=== PATIENT | male | born 1955 | race Caucasian/White ===

== ENCOUNTER 2017-03-11 11:28 | Observation (INO) | payer OTHER ==
[~2017-03-11] VITALS: Ht 167.6 cm; Wt 77.5 kg
[2017-03-11] MEDS ORDERED: FENO1TAB76 PO (12:00)
[2017-03-11] MEDS ORDERED: PRAV40TA2 PO (12:00)
[2017-03-11] MEDS ORDERED: NS 1000P @30 MLS/HR (KVO) IV SCH (12:00)
[2017-03-11] MEDS ORDERED: TAMS0.4C4 PO (12:00)
[2017-03-11] MEDS ORDERED: BUSP5TAB PO (12:00)
[2017-03-11 12:02] VITALS: BP 110/66; PULSE 50; RESP 16; TEMP 98; O2SAT 99
[2017-03-11 12:23] LABS: AUTOMATED NEUTROPHIL # 5.5 TH/MM3 (1.8-7.7); BASOPHIL # 0.1 TH/MM3 (0-0.2); BASOPHIL % 0.8 % (0.0-2.0); EOSINOPHIL # 0.1 TH/MM3 (0-0.4); EOSINOPHIL % 0.9 % (0.0-4.0); HEMATOCRIT 38.5 % (39.0-51.0); HEMO FLAGS DIFF FINAL; LYMPH % 22.9 % (9.0-44.0); LYMPHOCYTE # 1.9 TH/MM3 (1.0-4.8); MEAN CELL VOLUME 88.2 FL (80.0-100.0); MEAN CORPUSCULAR HGB CONC 34.1 % (32.0-36.0); MONO % 9.9 % (0.0-8.0); NEUT % 65.5 % (16.0-70.0); PLATELET COUNT 256 TH/MM3 (150-450); RED BLOOD COUNT 4.37 MIL/MM3 (4.50-5.90); RED CELL DISTRIBUTION WIDTH 13.5 % (11.6-17.2); WHITE BLOOD COUNT 8.4 TH/MM3 (4.0-11.0)
[2017-03-11 12:30] LABS: APTT (PATIENT) 24.5 SEC (24.3-30.1); PROTHROMBIN TIME - PATIENT 11.1 SEC (9.8-11.6)
[2017-03-11 12:53] LABS: BICARBONATE 29.4 MEQ/L (21.0-32.0)
[2017-03-11] MEDS ORDERED: IOHEXOL 350 MG/ML 100 ML BTL (for Cath Lab) OTHER ONE (15:20)
[2017-03-11] MEDS ORDERED: SODIUM CHLOR 0.9% 1000 ML INJ 500 ML IV SCH (16:06)
[2017-03-11] MEDS ORDERED: MIDAZOLAM HCL 5 MG/5 ML VIAL ONE (16:17)
--- NOTE | 2017-03-11 16:33 | CATHPROC ---
Patient Name: HERRERA PRUETT Study #: [id number] Initial MD: Drew Warren Date of : 1955 Study Date: 03/11/2017 Cardiac Catheterization Report 03/11/2017 4:33:26 PM Financial #: [id number] 1 of 11 Patient Name: HERRERA PRUETT Study #: [id number] Initial MD: Drew Warren Date of : 1955 Study Date: 03/11/2017 Entire Case Report Patient Information Patient Name HERRERA PRUETT Date of 1955 Age 61 years Financial # [id number] Gender M AlternateID Lab Number 4 Accession # Room Number Height (in) 66.0 Height (cm) 167.6 BSA 1.87 Weight (lbs) 170.1 Weight (kg) 77.3 Patient Address/Phone Number Home Address [facility] Home Phone Number [phone] [place] [address] Study Information Study Number Scheduled Start Study Start [id number] 03/11/2017 Mar 11 2017 3:21PM Referring Institution Admit Source Facility Department 1 [facility] Physician and Clinical Staff Initial Drew Elena Mortuary Operations Managercharles Fisher RN, Fareed Mortuary Operations ManagerDheeraj Anne,SCOT Recorder Anival Muhammad,(R) Kailey Concepcion RCIS TECH2 Procedures Performed Procedure Location (Site) Vessel Name Angiogram LV LV Ventricle Coronary Angiograms LCA Left Coronary Coronary Angiograms RCA Right Coronary L Heart Cath 03/11/2017 4:33:26 PM Financial #: [id number] 2 of 11 Patient Name: HERRERA PRUETT Study #: [id number] Initial MD: Drew Warren Date of : 1955 Study Date: 03/11/2017 Equipment Time Monomer Purification Operator Description Size Mfg Part Number Used/Scraped TRANSDUCER, TRUWAVE 15:26 BYERS MONTANEZ * [id number] Used W/Online PrasadCOCK [id number] *[id number] [id number] *[id number] [id number] *[id number] 15:26 MEDLINE INDUSTRIES PACK, CCL CUSTOM * Used *[id number] 15:26 MEDLINE PACER PEN, SKIN DUAL W/ RULER * [id number] Used [id number] 15:26 ERPLY MEDICAL WIRE, 3MMJ .035 180CM 180CM Used *[id number] PROBE COVER, STERILE 15:26 [place] [employer] MEDICAL * [id number] Used ULTRASOUND W/ GEL [id number] 15:26 NAMIC MANIFOLD, 4 PORT * Used *[id number] 15:26 NAMIC TUBING, HIGH PRESSURE 48" 48" Used *[id number] 15:26 NYCOMED OMNIPAQUE, 350 MG, 150ML 150ML [id number] Used [id number] 15:26 [employer] MEDICAL BLANKET,WARM AIR CCL * Used *[id number] 15:26 TERUMO MEDICAL SHEATH, FR5 TERUMO (10CM) FR 5 [id number] Used Insurance Information Insurance Payor Private Health Insurance Third Constitution Party Third Constitution Party Number CIGNA POS CIGPOS History: Current Medications Medication Dosage/Unit Route Frequency Last Date/Time Taken Statins (any) History: Allergies Allergy Reaction No Known Allergies 03/11/2017 4:33:26 PM Financial #: [id number] Patient Name: HERRERA PRUETT Study #: [id number] Initial MD: Drew Warren Date of : 1955 Study Date: 7 History: Risk Factors Family History of Hypertension Dyslipidemia Previous [place] Previous Heart Failure Premature CAD No Yes No No No Prior Valve Prior PCI Prior CABG Surgery No No No Cerebrovascular Peripheral Artery Chronic Lung On Dialysis Diabetes Disease Disease Disease No No No No No History: Stress Tests Stress or Imaging Studies Performed Yes Standard Exercise Stress Test No Stress Echo No Stress Test SPECT Stress Test SPECT Result Stress Test SPECT Ischemia Risk/Extent Yes Positive Low Stress Test CMR No Cardiac CTA Coronary Calcium Score No No History: Other Current Smoker No Labs Hgb (g/dl) Hct (%) RBC (MIL/MM3) WBC (l/cumm) Platelets (thousands) 12.00-18.00 37.00-55.00 4.80-6.20 4.80-10.80 140.00-450.00 13.1 38.5 4.3 8.4 256 Glucose (mg/dl) BUN (mg/dl) Creatinine (mg/dl) BUN:Creatinine (1:x) 60.00-110.00 8.00-20.00 0.10-9.00 10.00-20.00 87 19 1.1 17.3 Na (meq/l) K (meq/l) Cl (meq/l) Ca (mg/dl) 138.00-146.00 3.80-5.10 101.00-111.00 9.00-10.50 140 4 105 9.1 PT (sec) PTT (sec) INR (PTT:PT) 9.40-11.40 25.10-32.70 0.50-2.00 11.1 24.5 1 03/11/2017 4:33:26 PM Financial #: [id number] Patient Name: HERRERA PRUETT Study #: [id number] Initial MD: Drew Warren Date of : 1955 Study Date: 2016 CPK-MB (ng/ML) 0.00-7.00 Not Drawn Medication Medication Total Dose (Bolus/Oral) Medication Total Dosage/Unit 1% XYLOCAINE 20 mL FENTANYL 75 mcg VERSED 3 mg Medications (Bolus/Oral) Medication Time Given Dosage/Unit Administered By Reason FENTANYL 03/11/2017 3:46:29 PM 50 mcg Fareed Fisher RN 50 mcg FENTANYL given in lab by Fareed Fisher RN in Left Antecubital via Peripheral IV. VERSED 03/11/2017 3:46:30 PM 2 mg Fareed Fisher RN 2 mg VERSED given in lab by Fareed Fisher RN in Left Antecubital via Peripheral IV. 1% XYLOCAINE 03/11/2017 3:46:48 PM 20 mL Drew Warren 20 mL 1% XYLOCAINE given in lab by Drew Warren in Right Groin via Subcutaneous. FENTANYL 03/11/2017 3:50:13 PM 25 mcg Fareed Fisher RN 25 mcg FENTANYL given in lab by Fareed Fisher RN in Left Antecubital via Peripheral IV. VERSED 03/11/2017 3:50:51 PM 1 mg Fareed Fisher RN 1 mg VERSED given in lab by Fareed Fisher RN in Left Antecubital via Peripheral IV. Medication (Drip) Medication Time Given Dosage/Unit Concentration/Unit Diluent (ml) Soluti on IV Solutions 03/11/2017 3:23:50 PM 0 mL (IV) 500 NaCl .9 IV Solutions given in lab by Dheeraj Cruz, SCOT in Left Antecubital via Peripheral IV. Pump/Drip Flow = 20 ml/hr using NaCl .9. 03/11/2017 4:33:26 PM Financial #: [id number] 5 of 11 Patient Name: HERRERA PRUETT Study #: [id number] Initial MD: Drew Warren Date of : 1955 Study Date: 03/11/2017 Initial Case Assessment Cardiovascular HR Rhythm NIBP Chest Pain 56 Sinus/Van 110/63 0 Edema Present Skin color Skin None Normal Warm Dry Circulatory - Right Pulses Dorsalis Pedis Femoral 1 2 Scale (0,1,2,3,4,d) Circulatory - Left Pulses Dorsalis Pedis Femoral 1 2 Scale (0,1,2,3,4,d) Neurological State Oriented to time-place- Alert Moves all extremities person Respiration - General Respiration Rate SpO2 (%) O2 (lpm) (B/min) 15 98 0 03/11/2017 4:33:26 PM Financial #: [id number] 6 of 11 Patient Name: HERRERA PRUETT Study #: [id number] Initial MD: Drew Warren Date of : 1955 Study Date: 03/11/2017 Final Case Assessment Cardiovascular HR Rhythm NIBP Chest Pain 76 Sinus 95/49 0 Edema Present Skin color Skin None Normal Warm Dry Circulatory - Right Pulses Dorsalis Pedis Femoral 1 2 Scale (0,1,2,3,4,d) Circulatory - Left Pulses Dorsalis Pedis Femoral 1 2 Scale (0,1,2,3,4,d) Neurological State Oriented to time-place- Alert Moves all extremities person Respiration - General Respiration Rate SpO2 (%) O2 (lpm) (B/min) 14 98 2 Vitals Summary Pain Time HR NIBP SpO2 Resp Temp EtCO2 Apnea Daysi Dickson Comment Level 15:25:12 110/63 98.0 10 0 2 15:30:03 57 109/66 99.0 13 10 0 2 15:35:06 59 97/54 100.0 14 10 0 2 15:40:03 60 101/63 100.0 16 10 0 2 15:45:04 52 97/60 99.0 15 10 0 2 15:50:05 64 92/55 95.0 12 10 0 2 15:55:04 79 95/49 98.0 15 10 0 2 16:00:05 74 85/51 98.0 13 10 0 2 16:05:02 72 93/56 98.0 12 10 0 2 16:10:05 74 98/64 99.0 15 10 0 2 16:15:04 70 108/65 98.0 11 10 0 2 16:20:09 70 104/63 97.0 11 10 0 2 16:25:08 71 100/65 97.0 9 10 0 2 16:30:05 103/72 10 0 2 03/11/2017 4:33:26 PM Financial #: [id number] Patient Name: HERRERA PRUETT Study #: [id number] Initial MD: Drew Warren Date of : 1955 Study Date: 03/11/2017 Daysi Score Summary Time Activity Resp Circ LOC Color Total Score 15:25:12 2 2 2 2 2 10 15:30:03 2 2 2 2 2 10 15:35:06 2 2 2 2 2 10 15:40:03 2 2 2 2 2 10 15:45:04 2 2 2 2 2 10 15:50:05 2 2 2 2 2 10 15:55:04 2 2 2 2 2 10 16:00:05 2 2 2 2 2 10 16:05:02 2 2 2 2 2 10 16:10:05 2 2 2 2 2 10 16:15:04 2 2 2 2 2 10 16:20:09 2 2 2 2 2 10 16:25:08 2 2 2 2 2 10 16:30:05 2 2 2 2 2 10 Daysi Score Definition Table Activity - 0 Activity - 1 Activity - 2 No Movement to Command Weak Hand Grasp Lift Head, Good Hand Grasp Respiration - 0 Respiration - 1 Respiration - 2 Apneic or Obstructed Shallow Breath, Airway Adjunct Deep Breath, Cough Freely Circulation - 0 Circulation - 1 Circulation - 2 B/P > 50% Admission B/P B/P > 20-50% Admission B/P B/P Stable X3 Level of Consciousness - 0 Level of Consciousness - 1 Level of Consciousness - 2 Not Responding Arousable On Calling Awake and Aware Color - 0 Color- 1 Color - 2 Cyanotic Lips, Nailbed, Skin Pale, Dusky [place] Or Normal Chronological Log Time Study Chronological Log 15:20:35 Patient arrived via Bed. 15:22:43 Patient Name, D.O.B, / Armband Verified By R.N. 15:22:44 Consent signed by the physician and the patient and verified by the [facility] staff. 15:22:45 Pre-op and post- op instructions given; patient acknowledges understanding of instruction s. 15::46 Verbal Stimulation=2 Physical Stimulation=2 Airway=2 Respiration=2 TOTAL=8. (0=absent, 1= limited, 2=present) 15:22:58 Presedation assessment performed by [facility] RN. 15:23:00 Patient has been NPO for More than 6Hrs. 03/11/2017 4:33:26 PM Financial #: [id number] Patient Name: HERRERA PRUETT Study #: [id number] Initial MD: Drew Warren Date of : 1955 Study Date: 03/11/2017 15:23:01 Skin Breakdown- none per patient. 15:23:11 Patient Warmer Placed on the Table. 15:23:12 Twan Prominences Protected 15:23:14 A # 20 IV was noted in the Antecubital (left). Grade = 0 IV Solutions given in lab by Dheeraj Cruz, RN in Left Antecubital via Peripheral IV. Pump/Dri p Flow = 20 ml/hr using 15:23:50 NaCl .9. 15:24:14 History and physical on the chart or being dictated. Assessment: Initial Case, HR=56 BPM, Rhythm=Sinus/Van, MMTG=461/63 mmhg, Chest Pain=0, Edema= None, Color=Normal, Skin = Warm, Dry Right Pulses: Jamar Ped=1, Femoral=2 15:24:17 Left Pulses: Jamar Ped=1, Femoral=2 Neurological: State=Alert, Ox3, HASKINS Respiration: Resp=15 B/min, SpO2=98 %, O2=0 lpm Vitals capture started with the following parameters, Patient=Adult, Interval=15 min, Initial P dkoppjp=473 mmHg, 15:24:32 Deflation Rate=5 mmHg 15:25:12 MHUM=350/63 mmhg, SpO2=98.0 %, Pain=0, Daysi=10, Dickson=2 15:30:00 MD arrived. 15:30:03 HR=57 bpm, YPNT=348/66 mmhg, SpO2=99.0 %, Resp=13 B/min, Pain=0, Daysi=10, Dickson=2 15:35:06 HR=59 bpm, NIBP=97/54 mmhg, EuU6=090.0 %, Resp=14 B/min, Pain=0, Daysi=10, Dickson=2 15:35:49 Reference ECG taken 15:35:52 Bilateral groins prepped with 2% chlorhexidine, and with a 3 min. waiting time. 15:40:03 HR=60 bpm, XIVI=734/63 mmhg, IlZ3=162.0 %, Resp=16 B/min, Pain=0, Daysi=10, Dickson=2 15:40:22 Pressure channel 1 zeroed. 15:45:04 HR=52 bpm, NIBP=97/60 mmhg, SpO2=99.0 %, Resp=15 B/min, Pain=0, Daysi=10, Dickson=2 Time Out. Correct patient, correct procedure,correct physician, power injector loaded with cont rast with surgical team 15:45:38 present. Time Out Concurred by MD, individual staff in procedure 15:46:17 Case Start 15:46:29 50 mcg FENTANYL given in lab by Fareed Fisher RN in Left Antecubital via Peripheral IV. 15:46:30 2 mg VERSED given in lab by Fareed Fisher RN in Left Antecubital via Peripheral IV. 15:46:48 20 mL 1% XYLOCAINE given in lab by Drew Warren in Right Groin via Subcutaneous. 15:48:04 Access site was Right Femoral Artery. 15:48:11 A SHEATH, FR5 TERUMO (10CM) FR 5 was advanced into the Fem Art (right) using the Percutaneo us technique. A PIGTAIL ANG. INFINITI CATHETER FR 5 was advanced over a wire. OMNIPAQUE, 350 MG, 150ML 150ML was used 15:48:33 for injections. 15:50:05 HR=64 bpm, NIBP=92/55 mmhg, SpO2=95.0 %, Resp=12 B/min, Pain=0, Daysi=10, Dickson=2 15:50:13 25 mcg FENTANYL given in lab by Fareed Fisher RN in Left Antecubital via Peripheral IV. 15:50:34 The LV was injected at 10 cc/sec for a total of 30. OMNIPAQUE, 350 MG, 150ML 150ML used. 15:50:51 1 mg VERSED given in lab by Fareed Fisher RN in Left Antecubital via Peripheral IV. Recorded Pressure: LV, HR=69, Condition=Condition 1 15:51:03 (Left Ventricle) LV 82/4/8 Recorded Pressure: LV, Ao, HR=69, Condition=Condition 1 15:51:07 (Left Ventricle) LV 81/4/8, (Aorta) Ao 15:51:23 Catheter was removed 03/11/2017 4:33:26 PM Financial #: [id number] Patient Name: HERRERA PRUETT Study #: [id number] Initial MD: Drew Warren Date of : 1955 Study Date: 03/11/2017 A JL 4.0 INFINITI CATHETER FR 5 was advanced over a wire. OMNIPAQUE, 350 MG, 150ML 150ML was us ed for 15:51:58 injections. 15:53:08 The LCA was injected and visualized at various angles. OMNIPAQUE, 350 MG, 150ML 150ML used . Recorded Pressure: Ao, HR=68, Condition=Condition 1 15:53:27 (Aorta) Ao 15:54:19 Catheter was removed A AR MOD INFINITI CATHETER FR 5 was advanced over a wire. OMNIPAQUE, 350 MG, 150ML 150ML was us ed for 15:54:49 injections. 15:55:04 HR=79 bpm, NIBP=95/49 mmhg, SpO2=98.0 %, Resp=15 B/min, Pain=0, Daysi=10, Dikcson=2 15:55:43 The RCA was injected and visualized at various angles. OMNIPAQUE, 350 MG, 150ML 150ML used . 15:56:24 Catheter was removed 15:57:42 Case End Assessment: Final Case, HR=76 BPM, Rhythm=Sinus, NIBP=95/49 mmhg, Chest Pain=0, Edema=None, Col or=Normal, Skin = Warm, Dry Right Pulses: Jamar Ped=1, Femoral=2 15:58:32 Left Pulses: Jamar Ped=1, Femoral=2 Neurological: State=Alert, Ox3, HASKINS Respiration: Resp=14 B/min, SpO2=98 %, O2=2 lpm 16:00:05 HR=74 bpm, NIBP=85/51 mmhg, SpO2=98.0 %, Resp=13 B/min, Pain=0, Daysi=10, Dickson=2 16:01:56 No case complications noted. 16:01:57 Cine recording checked. 16:04:42 Bedside Report will be given. 16:04:48 A Left Heart Cath was performed. 16:05:02 HR=72 bpm, NIBP=93/56 mmhg, SpO2=98.0 %, Resp=12 B/min, Pain=0, Daysi=10, Dickson=2 16:10:05 HR=74 bpm, NIBP=98/64 mmhg, SpO2=99.0 %, Resp=15 B/min, Pain=0, Daysi=10, Dickson=2 16:15:04 HR=70 bpm, ZXUH=782/65 mmhg, SpO2=98.0 %, Resp=11 B/min, Pain=0, Daysi=10, Dickson=2 16:20:09 HR=70 bpm, XZZT=222/63 mmhg, SpO2=97.0 %, Resp=11 B/min, Pain=0, Daysi=10, Dickson=2 16:25:08 HR=71 bpm, FRFM=191/65 mmhg, SpO2=97.0 %, Resp=9 B/min, Pain=0, Daysi=10, Dickson=2 16:30:05 ROXJ=995/72 mmhg, Pain=0, Daysi=10, Dickson=2 16:30:24 Vitals capture stopped. 16:30:34 Sterile dressing applied to site 16:32:41 Patient moved to stretcher Recorded Pressures: Condition 1 Time Chamber Pressure Manual Override (*) 15:51:03 LV 82/4/8 s/bd/ed 15:51:07 LV 81/4/8 s/bd/ed 15:51:07 Ao 90/52/69 s/d/m 15:53:27 Ao 90/53/69 s/d/m Gradients/Valve Area(s): Condition 1 03/11/2017 4:33:26 PM Financial #: [id number] Patient Name: HERRERA PRUETT Study #: [id number] Initial MD: Drew Warren Date of : 1955 Study Date: 03/11/2017 Valve calculated Mean Gradient Sq Root Mean Gradient Valve Area Valve Area Index Aortic valve by Radha Aortic valve by Thermo Oxygen Values/Cardiac Output/Resistances: Condition 1 Oxygen Values O2 Consumption O2 Capacity 233.8 + 178.2 * = Manually Altered + = O2 Consumption is calculated using the formula 125 x BSA and should be considered a rough estimat e. End Study - Contrast Media Used In Study Contrast Total Opened (mL) Total Used (mL) Total Wasted (mL) Omnipaque 200 80 120 End Study - Maximum Contrast Load Max Contrast Load (mL) 351.4 End Study - Radiation Exposure Fluoro Time (minutes) 1.5 End Study - Patient Disposition Complications Transferred To Interventional Outcome No Outpatient Bed No attempt made 03/11/2017 4:33:26 PM Financial #: [id number]
[2017-03-11 17:08] LABS: HDL CHOLESTEROL 55.5 MG/DL (40.0-60.0)
[2017-03-11 23:35] VITALS: BP 117/71; PULSE 59; RESP 18; TEMP 98; O2SAT 97
[2017-03-12] VITALS (13 sets, daily range): BP systolic 107–147; BP diastolic 70–83; PULSE 54–80; RESP 16–18; TEMP 97.9–98.9; O2SAT 96–100
--- NOTE | 2017-03-12 09:21 | MA ---
cc: CARITO MONTAÑO DATE: March 11, 2017 INDICATIONS: Unstable angina. Multiple risk factors for coronary artery disease. PROCEDURE PERFORMED: 1. Retrograde left heart catheterization with left ventriculography and selective coronary angiography. 2. Moderate sedation. ACCESS SITE: Right femoral artery. EQUIPMENT USED: A 5-Wolof pigtail catheter, 5-Wolof JL4 and AR modified coronary artery catheters. MEDICATIONS: Versed IV. Fentanyl IV. CONTRAST: Omnipaque 80 cc. COMPLICATIONS: None. ESTIMATED BLOOD LOSS: Less than 10 cc. METHOD OF HEMOSTASIS: Manual compression. RESULTS A. HEMODYNAMICS: Heart rate 72 beats per minute. Left ventricular end-diastolic pressure 5 mmHg. Left ventricle 90/5. Aorta 90/63/69. B. LEFT VENTRICULOGRAPHY: Left ventricular ejection fraction 55%. Wall motion normal. No mitral regurgitation. C. CORONARY ANGIOGRAPHY: The left main coronary artery is patent. The left anterior descending coronary artery is patent. D1 patent. D2 patent. The left circumflex artery is patent. OM-1 patent. OM2 patent. The right coronary artery is a dominant vessel which is patent. PDA patent. PLV patent. DIAGNOSES: 1. Patent coronary arteries. 2. Preserved left ventricular systolic function. DISPOSITION: Mr. Schmid can be reassured about his cardiac status. His study revealed no evidence of significant obstructive coronary disease and preserved left ventricular systolic function. His symptoms are likely of non-cardiac origin. He will be discharged home later today and I will see him back for followup in our office after discharge. MD MIGUEL Nguyễn/SSB /4:07 PM /9:13 AM RADHA
--- NOTE | 2017-03-12 16:53 | PD.CARD.PN ---
Subjective Subjective Remarks No CP or SOB, groin now stable Objective Medications Current Medications Medications (Trade) Dose Ordered Sig/Juan C Route Start Time Stop Time Status Last Admin (NS 1000 ml Inj) 1,000 ml @ 30 mls/hr Q24H IV 03/11/17 12:00 Vital Signs / I&O Vital Signs Date Time Temp Pulse Resp B/P Pulse Ox O2 Delivery O2 Flow Rate FiO2 03/12/17 14:05 61 03/12/17 13:00 64 03/12/17 12:04 63 03/12/17 11:54 98.9 60 18 110/71 99 03/12/17 11:00 66 03/12/17 10:00 80 03/12/17 09:00 58 03/12/17 08:00 56 03/12/17 08:00 98.3 58 16 137/76 100 03/12/17 07:00 66 03/12/17 04:00 97.9 68 18 147/83 97 03/12/17 02:03 60 16 123/76 96 03/12/17 00:40 98.0 54 18 107/70 98 03/12/17 00:00 54 03/11/17 23:35 98.0 59 18 117/71 97 03/11/17 23:35 59 Physical Exam GENERAL: In NAD SKIN: Warm and dry. HEAD: Normocephalic. EYES: No scleral icterus. No injection or drainage. NECK: Supple, trachea midline. No JVD or lymphadenopathy. CARDIOVASCULAR: Regular rate and rhythm without murmurs, gallops, or rubs. RESPIRATORY: Breath sounds equal bilaterally. No accessory muscle use. GASTROINTESTINAL: Abdomen soft, non-tender, nondistended. MUSCULOSKELETAL: No cyanosis, or edema. Groin stable. Laboratory Laboratory Tests Test 03/11/17 12:00 White Blood Count 8.4 TH/MM3 Red Blood Count 4.37 MIL/MM3 Hemoglobin 13.1 GM/DL Hematocrit 38.5 % Mean Corpuscular Volume 88.2 FL Mean Corpuscular Hemoglobin 30.0 PG Mean Corpuscular Hemoglobin 34.1 % Concent Red Cell Distribution Width 13.5 % Platelet Count 256 TH/MM3 Mean Platelet Volume 8.6 FL Neutrophils (%) (Auto) 65.5 % Lymphocytes (%) (Auto) 22.9 % Monocytes (%) (Auto) 9.9 % Eosinophils (%) (Auto) 0.9 % Basophils (%) (Auto) 0.8 % Neutrophils # (Auto) 5.5 TH/MM3 Lymphocytes # (Auto) 1.9 TH/MM3 Monocytes # (Auto) 0.8 TH/MM3 Eosinophils # (Auto) 0.1 TH/MM3 Basophils # (Auto) 0.1 TH/MM3 CBC Comment DIFF FINAL Differential Comment Prothrombin Time 11.1 SEC Prothromb Time International 1.0 RATIO Ratio Activated Partial 24.5 SEC Thromboplast Time Sodium Level 140 MEQ/L Potassium Level 4.0 MEQ/L Chloride Level 105 MEQ/L Carbon Dioxide Level 29.4 MEQ/L Anion Gap 6 MEQ/L Blood Urea Nitrogen 19 MG/DL Creatinine 1.18 MG/DL Estimat Glomerular Filtration 62 ML/MIN Rate Random Glucose 87 MG/DL Calcium Level 9.1 MG/DL Triglycerides Level 116 MG/DL Cholesterol Level 147 MG/DL LDL Cholesterol 68 MG/DL HDL Cholesterol 55.5 MG/DL Cholesterol/HDL Ratio 2.64 RATIO Assessment and Plan Problem List: (1) Unstable angina Assessment and Plan Cath with nl LV fx and patent cors. Groin now stable, no evidence of hematoma. Discharge home. Will refer for GI evaluation. Schedule outpt F/U. Drew Warren MD March 12, 2017 16:53
--- NOTE | 2017-03-12 17:37 | EKG ---
Date Performed: 03/11/2017 Time Performed: 12:12:40 PTAGE: 61 years EKG: Sinus bradycardia Normal ECG except for rate NO PREVIOUS TRACING DOCTOR: Joselo Brown Interpretating Date/Time 03/12/2017 17:37:10
== END 2017-03-12 18:00 | disposition home or self-care (01) ==
LOC: HDOC 11:28 → HDIC 11:29 → HDOC 21:29 → HCIS 21:30 → HDIC 23:30 → HCIS 23:30 → HDOC 23:31 → HCIS 23:31
PROVIDERS: ADMIT Internal Medicine Interventional Cardiology; ATTEND Internal Medicine Interventional Cardiology
DX: I20.0 Unstable angina (principal); E78.5 Hyperlipidemia, unspecified; N40.0 Benign prostatic hyperplasia without lower urinary tract symptoms; F41.9 Anxiety disorder, unspecified
CPT/HCPCS: 80048; 80061; 85025; 85610; 85730; 93005; 93458; C1769; C1893; G0378; J2250; J3010; Q9967